=== PATIENT | female | born 1940 | race Caucasian/White ===

== ENCOUNTER 2020-01-06 18:08 | Emergency (ER) | payer OTHER ==
[~2020-01-06] VITALS: Ht 152.4 cm; Wt 59.9 kg
== END 2020-01-06 22:46 | disposition home or self-care (01) ==
LOC: ER 18:08
DX: R10.11 Right upper quadrant pain (principal); Z20.828 Contact with and (suspected) exposure to other viral communicable diseases

== ENCOUNTER 2020-02-23 04:27 | Day surgery (SDC) | payer OTHER ==
[~2020-02-23 04:27] MED LIST: FELODIPINE ER2.5 MG PO; PRAVASTATIN SOD40 MG; SYNTHROID75 MCG PO; TYLENOL PO
== END 2020-02-23 13:45 | disposition home or self-care (01) ==
LOC: CIR.AMB 04:27
PROVIDERS: ATTEND Specialist
DX: K80.10 Calculus of gallbladder with chronic cholecystitis without obstruction (principal); Z20.828 Contact with and (suspected) exposure to other viral communicable diseases

== ENCOUNTER 2022-07-18 22:55 | Emergency (ER) | payer OTHER ==
[~2022-07-18] VITALS: Ht 157.5 cm; Wt 62.1 kg
[2022-07-19] MEDS ORDERED: CIPRO500 MG PO (07:36)
[2022-07-19] MEDS ORDERED: CARAFATE1 GM PO (07:36)
[2022-07-19] MEDS ORDERED: DICY20TA PO (07:36)
[2022-07-19] MEDS ORDERED: ACETAMINOPHEN650 M2 PO (07:36)
[2022-07-19] MEDS ORDERED: PEPCID AC20 MG PO (07:36)
[2022-07-19] MEDS ORDERED: INTESTINEX680 M1 PO (07:36)
== END 2022-07-19 08:03 | disposition home or self-care (01) ==
LOC: ER 22:55
DX: R11.2 Nausea with vomiting, unspecified (principal); R10.9 Unspecified abdominal pain; E03.9 Hypothyroidism, unspecified; Z88.8 Allergy status to other drugs, medicaments and biological substances; A05.9 Bacterial foodborne intoxication, unspecified; K52.9 Noninfective gastroenteritis and colitis, unspecified; Z90.5 Acquired absence of kidney; K57.30 Diverticulosis of large intestine without perforation or abscess without bleeding